=== PATIENT | female | born 1945 | race Caucasian/White ===

== ENCOUNTER → 2017-01-18 | Outpatient (CLI) | payer OTHER ==
[~2017-01-18] VITALS: Ht 154.9 cm; Wt 68.6 kg
[~2017-01-18] MED LIST: ACTOS15 MG PO; ALBUTEROL17 G1 IH; ALPRAZOLAM0.5 MG PO; AMARYL2 MG PO; AMITIZA24 MCG PO; ASPIR-TRIN325 MG PO; ASPIRIN EC81 M1 PO; ASPIRIN325 M1 PO; ASPIRIN81 M1 PO; ASPIRIN81 M2 PO; ASPIRIN81 MG PO; ASPIRINEC PO; AVANDIA; BAYER ASPIRIN325 M1 PO; BENZONATATE PO; CARVEDILOL3.125 MG PO; CARVEDILOL6.25 MG PO; CELEXA20 MG PO; CHLORTHALIDONE25 MG PO; CHLORTHALIDONE50 M1 PO; CHOLESTEROL PILL; CIPRO PO; CLOPIDOGREL75 MG PO; COREG12.5 MG PO; COREG6.25 MG PO; DIABETA5 M1 PO; EFFIENT10 MG PO; FLEXERIL PO; FLEXERIL10 MG PO; GLYBURIDE; GLYNASE PO; HCTZ PO; I-CAPS AREDS S1 EACH PO; IMDUR-ER30 M1 PO; IRON18 MG PO; ISOSORBIDE DINI30 MG PO; LANSOPRAZOLE30 MG PO; LANTUS100 U/ML SQ; LEVEMIR100 U/ML SQ; LEVEMIR100 UNITS/ SUBQ; LIPITOR PO; LIPITOR20 MG PO; LIPITOR40 MG PO; LISINOPRIL PO; LISINOPRIL10 MG PO; LORTAB 10-5001 EACH PO; LORTAB 5/500 TA1 TA2 PO; MECLIZINE HCL12.5 MG PO; MEDROL DOSEPAK4 MG PO; METFORMIN PO; MICRONASE5 M1 PO; MICRONASE5 M2 PO; MOBIC15 MG PO; NITROGLYCERIN0.3 MG SL; NITROGLYGERIN0.4 MG SL; NITROSTAT0.4 MG SL; NOVOLIN 70/30 V10 M1 SUBQ; NOVOLIN 70100 UNITS/ INJ; NOVOLOG100 U/M2 SUBQ; NOVOLOG100 U/ML SUBQ; NOVOLOG100 UNITS/ INJ; NOVOLOG7030 SUBQ; OMEPRAZOLE40 MG PO; ONGLYZA2.5 MG PO; PERCOCET 5-3251 TAB PO; PIOGLITAZONE15 MG PO; PLAVIX PO; PREDNISONE PO; PRINIVIL10 MG PO; PROTONIX PO; PYRIDIUM PO; REMERON15 MG PO; TESSALON PERLE100 M1 PO; TRAMADOL HCL50 M1 PO; ULTRAM PO; VALTREX PO; XANAX0.5 M1 PO; XANAX0.5 MG PO; ZESTORETIC 20/11 TAB; ZESTRIL10 M1 PO; ZOCOR PO
--- NOTE | ~2017-01-18 | EKG ---
PATIENT: TORRI BRYAN UNIT #: [id number] Ventricular Rate: 72 BPM Atrial Rate: 72 BPM P-R Interval: 150 ms QRS Duration: 80 ms Q-T Interval: 376 ms QTC Calculation(Bezet): 411 ms P [place]: -10 degrees Calculated R [place]: 2 degrees Calculated T [place]: 13 degrees Diagnosis Line: Normal sinus rhythm Diagnosis Line: Septal infarct , age undetermined Diagnosis Line: Abnormal ECG Diagnosis Line: No previous ECGs available Diagnosis Line: Confirmed by LORI MEDINA MD ([id number]) on 01/19/2017 Diagnosis Line: 10:18:18 PM INTERPRETING MD: ADAM CRAMER
[2017-01-18 08:53] LABS: HEMOGLOBIN 11.1 gm/dL (12.0-16.0); MEAN CORPUSCULAR HGB CONC 34.9 g/dL (30-36); MEAN PLATELET VOLUME 8.5 FL (6.5-11.5); RED BLOOD COUNT 3.59 X10e (3.90-5.30); RED CELL DISTRIBUTION WIDTH 13.7 % (11.0-15.5); WHITE BLOOD COUNT 7.5 X10e3 (4.0-10.5)
[2017-01-18 09:07] LABS: BUN/CREATININE RATIO 19.23; CALCIUM SERUM 9.2 mg/dL (8.4-10.2); CREATININE SERUM 1.3 mg/dL (0.6-1.4); GLOM FILT RATE Estimated 40.7 mL/min (>60); POTASSIUM 4.4 mmol/L (3.5-5.1)
[2017-01-18 09:12] LABS: PARTIAL THROMBOPLASTIN TIME 25.2 SECONDS (23.5-31.3); PROTHROMBIN TIME (PATIENT) 10.7 SECONDS (10.0-11.7)
== END | disposition home or self-care (01) ==
LOC: CCVL 08:03
PROVIDERS: Internal Medicine Cardiovascular Disease
DX: I25.118 Atherosclerotic heart disease of native coronary artery with other forms of angina pectoris (principal); Z95.5 Presence of coronary angioplasty implant and graft; I12.9 Hypertensive chronic kidney disease with stage 1 through stage 4 chronic kidney disease, or unspecified chronic kidney disease; E11.22 Type 2 diabetes mellitus with diabetic chronic kidney disease; N18.9 Chronic kidney disease, unspecified; Z79.84 Long term (current) use of oral hypoglycemic drugs; Z87.891 Personal history of nicotine dependence; E78.5 Hyperlipidemia, unspecified; Z79.899 Other long term (current) drug therapy; Z79.82 Long term (current) use of aspirin; Z82.49 Family history of ischemic heart disease and other diseases of the circulatory system; Z88.0 Allergy status to penicillin
CPT/HCPCS: 36415; 80048; 85027; 85610; 85730; 93005; 99152; 99153; C1769; C1887; C1894; J1644; J2250; J3010